=== PATIENT | male | born 1955 | race African-American/Black ===

== ENCOUNTER 2019-01-25 17:43 | Emergency (ER) | payer BC ==
--- NOTE | 2019-01-25 18:22 | CT ---
CT Cervical Spine WO Con History: Trauma. Neck and back pain Comparison: None. Findings: The occipital condyles are intact. Abnormal narrowing of the atlantodental interval, degene rative in nature. Moderate degenerative disc space disease at C4-C6. No acute fracture or malalignment of the cervical spine. No transverse process fracture. Visualized r ibs are intact. Mild scarring both lung apices. Hypodensities left lobe of the thyroid for which nonemergent ultrasound can be performed if clinically warranted. Mild third spacing of fluid. No paraspinal muscle asymmetry. Impression: No acute fracture or malalignment of the cervical spine.
--- NOTE | 2019-01-25 18:47 | RAD ---
XR Lumbar Spine 2 Or 3 View History: Neck and back pain Comparison: Lumbar spine radiographs thousand 9 Findings: No acute fracture or malalignment. Low-grade L5/S1 disc space narrowing. Small anterior ost eophytes lower lumbar spine. No listhesis. Spinous processes are intact. Numerous phleboliths in the pelvis. Impression: No acute fracture or malalignment.
[2019-01-25] MEDS ORDERED: Ibuprofen 800 MG TAB ONE (18:54)
== END 2019-01-25 19:00 | disposition home or self-care (01) ==
LOC: ERS 17:43
DX: S16.1XXA Strain of muscle, fascia and tendon at neck level, initial encounter (principal); S39.012A Strain of muscle, fascia and tendon of lower back, initial encounter; V89.2XXA Person injured in unspecified motor-vehicle accident, traffic, initial encounter
CPT/HCPCS: 72100; 72125